=== PATIENT | female | born 1955 | race Caucasian/White ===

== ENCOUNTER 2018-05-31 12:03 | Inpatient (IN) ==
--- NOTE | 2018-05-30 22:14 | Discharge Summary ---
<Rosa Sagastume - Last Filed: 05/31/18 16:40> Orders not resulted at time of discharge: Pending orders 05/31/18 00:01 XR knee RT 1-2V [XR] Routine H/H [Hemoglobin and Hematocrit] [HEME] Routine - Discharge Diagnosis (1) Arthritis of knee, right Priority: Primary Status: Acute Comments: Total Knee replacement Precautions x 6 weeks Apply cold therapy wrap 3-6x/day for 20 minutes at a time. Encourage ambulation throughout the day and incentive spirometer 10x/hour. Elevate affected extremity above heart as tolerated. Brace: Wear knee immobilizer at night x until first post-operative appt. Opsite placed. Keep dressing intact until first follow up appointment. If > 50% saturated, notify office, remove dressing and place appropriate dressing back in place. Leave Zipline intact. Opsite dressing is water resistant, not water-pr lorrie. OK to shower, but do not get dressing wet. (2) Status post total knee replacement, right Priority: Primary Status: Acute (3) HTN (hypertension) Priority: Secondary Status: Chronic Qualifiers: Hypertension type: essential hypertension Qualified Code(s): I10 - Essential (primary) hypertension - Hospital Course Hospital course: Ms. Grijalva is a 63 year old female - Time Spent with Patient Total time spent providing and/or coordinating discharge services: - Discharge Medications Home Medications: Labetalol [Trandate] 100 mg PO BID 12/11/17 [History] Lisinopril-HCTZ 10-12.5 [Prinzide 10-12.5] 1 tab PO DAILY 12/11/17 [History] Aspirin Enteric Coated [Aspirin EC] 325 mg PO BID #20 tablet.dr 05/30/18 [Rx] OxyCODONE Immed Rel [Roxicodone 5 MG] 5 mg PO Q6HR PRN 7 Days #28 tablet 05/30/18 [Rx] Aspirin [Lo-Dose Aspirin EC] 81 mg PO DAILY 05/31/18 [History] Etodolac 400 mg PO BID 05/31/18 [History] Allergies/Adverse Reactions: Allergy/AdvReac Type Severity Reaction Status Date / Time No Known Allergies Allergy Verified 05/31/18 12:49 Primary care physician: Mahnaz Rodriguez CNP - Patient Status Disposition: Home, Self-Care - Discharge Instructions Instructions: Total Knee Replacement (DC) Follow Up With: Mahnaz Rodriguez CNP [Primary Care Provider] - Additional Instructions: Discharge Instructions: Total Knee Replacement Please call [facility] ([phone]), your Primary Care Physician, or report to the Emergency Room if you have any of the following symptoms: Nausea, vomiting, fever greater that 101.5, swelling, chest pain, shortness of breath, increased pain/redness/drainage/odor for your incision site, numbness/tingling, or any other concerning symptoms. ACTIVITY:Weight-bearing as tolerated. You may progress off support (crutches or walker) as tolerated. Incentive Spirometer 10 times an hour. MEDICATIONS: Upon discharge resume your home medications. Take all the medications as prescribed. Take a stool softener if taking narcotic pain medications. Stool softeners are only effective if you drink enough fluids. Drink 6-8 glass of water or fluids a day, unless this is not allowed for another health problem. Despite using stool softeners, if you haven't had a bowel mo vement in 3 days, please switch to a gentle laxative. Gentle laxatives are sold over the counter. You should have a bowel movement within 24 hours, if not call the office. You will be discharged from the hospital with a prescription for pain medication. You are encouraged to decrease the use of narcotic pain medication as tolerated. Should you require a refill, please call the office. [facility] prescribes narcotic pain medication for only 4-6 weeks after surgery. If you require pain medication beyond this time period, you may be referred to your Primary Care Physician or to the Pain Clinic for further evaluation. Plan ahead for refills on pain medication as many narcotics either need to be picked up at the office or mailed. It is best to call 48-72 hours in advance of needing a prescription refill so you don't run out of medication. To help control the post-operative pain, you may take NSAIDs (Aleve,Advil, Motrin, Ibuprofen, Naprosyn) or Tylenol as prescribed on the bottle in addition to the pain medication. ANTICOAGULATION (blood thinners): Continue your Aspirin, Lovenox or Coumadin as prescribed to help prevent a blood clot in the leg or in the lungs. As long as your incision remains dry and you tolerate the NSAIDs (Aleve, Advil, Motrin, ibuprofen, naprosyn), it is OK to use the NSAIDS while you are taking your anticoagulation medication. Should your incision start to drain, stop the NSAID and contact our office. Common symptoms of blood clot in the legs include: localized pain, swelling, calf tenderness, redness or discoloration of the skin. Blood clot in the lung symptoms include: shortness of breath, rapid pulse, sweating, and chest pain that worsens with deep breathing, coughing up blood, lightheadedness, feelings of anxiety. If you experience any of these symptoms notify your physician immediately, go to the emergency room, or if having trouble breathing, call 911. WOUND CARE: Leave the dressing on for 7 to 10days. You may change the dressing if it becomes saturated greater than 50%. Do not get the dressing wet at anytime. Wash your hands with antibacterial soap, rinse and dry prior to any wound care. If you have bettye the visiting nurse or rehab facility can remove the stapes 10-14 days after surgery and place steri-strips across the wound. Leave the steri-strips in place until they fall off on their won. You may let water from the shower run on top of the steri-strips. If you do not have a visit ing nurse or rehab facility, you will need to return to the office at 10-14 days for the bettye to be removed. If you have itching or redness around the dressing call the office. FOLLOW-UP: Please follow up with your surgeon in the orthopedic clinic in 4 weeks from the day of surgery. If you have bettye that need to be removed, you will need to come back to the office in 10-14 days from the day of surgery. <Lalita Lauren - Last Filed: 06/01/18 19:18> Orders not resulted at time of discharge: Pending orders 05/31/18 12:17 US anesthesia pain block [US] Routine 05/31/18 14:47 Surgical Pathology [PTH] Routine Date of Encounter: 06/01/18 Time of Encounter: 12:00 - Discharge Diagnosis (1) Arthritis of knee, right Priority: Primary Status: Acute (2) Status post total knee replacement, right Priority: Primary Status: Acute (3) HTN (hypertension) Priority: Secondary Status: Chronic Qualifiers: Hypertension type: essential hypertension Qualified Code(s): I10 - Essential (primary) hypertension - Hospital Course Hospital course: Ms. Grijalva is a 63 year old female status post right TKR robotic 05/31/18 with a history ofHTN . Patient had uneventful postoperative course other than she needed to be straight cathed but she was able to urinate on own before discharge with no other symptoms. She participated in therapy. Stable for d ischarge. Patient seen at bedside, without complaints. A&O x 3 Afebrile, vital signs stable. Labs reviewed. H/H - 12.0/35.7 stable, asymptomatic Pain control: adequate Participating in PT. All questions and concerns addressed. Educated on use of incentive spirometer. Encouraged ambulation and proper hydration. Patient educated on post-operative restrictions and post-operative care. Assessment and plan: Continue with postoperative care Discharge plan: Home with outpatient therapy, discharge today. - Time Spent with Patient Total time spent providing and/or coordinating discharge services: Date of admission: 05/31/18 16:35 Primary care physician: Mahnaz Rodriguez CNP Consults: 05/31/18 16:38 Consult to Orthopedic Navigator [CONS] [CONS] Routine Consult to Physical Therapy [CONS] Routine Comment: Evaluate, develop and impliment POC Reason for Consult: post knee surgery Does patient have active BEDREST order?: No Is patient medically & hemodynamically stable?: Yes Consult to Program Development Specialist [CONS] Routine Reason for SW Consult: post op joint replacement RT Post Op Consult [CONS] Routine Discharging clinician: Phil Khan Anticipated date of discharge: 06/01/18 Labs on day of discharge: Labs from last 24 hours 06/01/18 06/01/18 05:54 05:54 Hgb 12.0 Hct 35.7 Sodium 137 Potassium 4.3 Chloride 105 Carbon Dioxide 25 BUN 20 Creatinine 0.75 Est GFR ( Amer) > 60 Est GFR (Non-Af Amer) > 60 BUN/Creatinine Ratio 27 H Glucose 136 H Calculated Osmolality 289 Calcium 9.1 - Impressions ITS Impressions Knee X-Ray 05/31/18 00:01 IMPRESSION: Status post right total knee arthroplasty without immediate complications. D/ / Eugene Castillo MD / Eugene Castillo MD Interpreting Provider: Eugene Castillo MD - Patient Status Functional capacity at discharge: uses cane/walker Overall status at discharge: patient is back to baseline - Diet and Activity Activity: as per physical therapy Diet: advance to your usual diet
[2018-05-31] MEDS ORDERED: *HR* FentaNYL (PF) 100 MCG/2 ML VIAL ONE (12:15)
[2018-05-31] MEDS ORDERED: *HR* Propofol 200 MG/20 ML VIAL IVP ONE (12:15)
[2018-05-31] MEDS ORDERED: Famotidine 20 MG/2 ML VIAL IVP ONE (12:15)
[2018-05-31] MEDS ORDERED: *HR* Midazolam HCl 2 MG/2 ML VIAL ONE (12:15)
[2018-05-31] MEDS ORDERED: Acetaminophen IV 1,000 MG/100 ML INFUS..BTL IVPB ONE (12:16)
[2018-05-31] MEDS ORDERED: Pregabalin 75 MG CAPSULE PO ONE (12:17)
[2018-05-31] MEDS ORDERED: *HR* Promethazine 25 MG/ML VIAL IVP PRN (12:21)
[2018-05-31] MEDS ORDERED: *HR* OxyCODONE Immed Rel 5 MG TABLET PO PRN ×2 (12:21→16:38)
--- NOTE | 2018-05-31 12:22 | Anesthesia Evaluation PreOp ---
Date of Encounter: 05/31/18 Time of Encounter: 12:19 - Past History Planned Operation: Robotic R-TKR Cardiac History: HTN Pulmonary History: Denies Any Significant HX CARD BRUSHER History: Other (Hx Vertigo) Other Medical History: Denies Any Significant HX Anesthesia History: No Prior Anesthetic Complications, Past Anesthesia (BTL, L- CTR, Bone marrow donation, R-CTS, B -lithotripsy) Alcohol Use: none Drug use: none Medications and Allergies Glucosamn/Condroitn/C/Mn/[place] [[facility] Glucosamine Chondroit Cplt] 1 tab PO DAILY 12/11/17 [History] Labetalol [Trandate] 100 mg PO BID 12/11/17 [History] Lisinopril-HCTZ 10-12.5 [Prinzide 10-12.5] 1 tab PO DAILY 12/11/17 [History] Aspirin Enteric Coated [Aspirin EC] 325 mg PO BID #20 tablet. 05/30/18 [Rx] OxyCODONE Immed Rel [Roxicodone 5 MG] 5 mg PO Q6HR PRN 7 Days #28 tablet 05/30/18 [Rx] Allergy/AdvReac Type Severity Reaction Status Date / Time No Known Allergies Allergy Verified 12/11/17 09:52 - Meds/Allergy Pre-op Review Medications Reviewed: Yes Allergies Reviewed: Yes Beta Blockers on Current Med List: Yes (Labetalol) If Beta Blockers taken, Date/Time (Last Dose taken): 05/31/2018 @ 0700 Anesthesia Results - Labs Labs from Outside Facility dated 05/13/2018 essentially WNL INR = 1.1 12.5 CBC = 5.2 282 36.3 - Imaging EKG: report reviewed (66bpm - SINUS RHYTHM BORDERLINE LEFT AXIS DEVIATION Electronically Signed On 05-26-2018 9:08:19 EDT by Dante Espino) Anesthesia Exam O2 Sat Height 1.7 m Height 1.7 m Weight 83.461 kg Weight 83.461 kg O2 Sat by Pulse Oximetry 94 Vital Signs Temp Pulse Resp BP Pulse Ox 98.3 F 83 18 141/82 94 05/31/18 12:17 05/31/18 12:17 05/31/18 12:17 05/31/18 12:17 05/31/18 12:17 Height: 5'7" Weight: 184# BMI = 29 NPO (# of Hours): MNoc - HEENT Pupil (Motor): Pupils equal, EOMI Mallampati: II Teeth: Normal Oral Opening: Greater than 3 - CARD BRUSHER LOC: Oriented CARD BRUSHER Motor: Normal RUE, Normal LUE, Normal RLE, Normal LLE, Normal Face CARD BRUSHER Sensory: Normal: RUE, LUE, RLE, LLE, Face - Cardiac Rhythm: Regular Murmur: None - Pulmonary Breath Sounds: bilateral Clear Respiratory Effort: Symmetrical Anesthesia Assess/Plan ASA Score: 2 (HTN, Hypothyroidism) Modified [place] Scale for Level of Consciousness: Cooperative, oriented, and tranquil Anes Supervising Prov Stmt: Pt seen/evaluated, R&B Discussed,questions answered and consent obtained. Jad Zimmerman MD
[2018-05-31] MEDS ORDERED: Lidocaine -MPF 2% 2 ML VIAL ONE (12:29)
[2018-05-31] MEDS ORDERED: Ondansetron 4 MG/2 ML VIAL ONE (12:29)
[2018-05-31] MEDS ORDERED: CeFAZolin Syr 2,000MG/20 ML 2,000 MG/20 ML SYRINGE IVPB ONE (12:37)
[2018-05-31] MEDS ORDERED: Ringers Solution, Lactated 1,000 ML IVC SCH ×2 (12:45→16:38)
--- NOTE | 2018-05-31 12:51 | History & Physical Report ---
Date of Encounter: 05/31/18 Time of Encounter: 12:51 24 Hour HP Update - Instructions Instructions: If the History and Physical is less than 30 days old and was completed prior to A.M. admission and or procedure and has NOT been updated on calendar day of procedure please complete this update prior to performing procedure. - Update Patient reports changes in Medical Condition: No Changes in examination, assessment, or condition: No Changes in Medication: No Preop tests/diagnostics Reviewed: Yes Surgery Remains Indicated: Yes Consent for Planned Operative Procedure(s) Verified: Yes - Pre-Operative Checklist Preoperative Checklist Indicated: No Prophylactic Antibiotic Ordered: Yes Is VTE Prophylaxis Indicated?: Yes
[2018-05-31] MEDS ORDERED: ROPIVACAINE HCL/PF 0.5% 30 ML VIAL ONE (12:54)
[2018-05-31] MEDS ORDERED: Bupivacaine/Clonidine Syringe 1 EACH SYRINGE ONE (12:54)
[2018-05-31] MEDS ORDERED: Tetracaine/PF 20 MG/2 ML AMPUL ONE (12:54)
[2018-05-31] MEDS ORDERED: Bupivacaine-MPF 0.25% 10 ML VIAL ONE (13:32)
[2018-05-31] MEDS ORDERED: Ethanol\\Acetic Acid\\Na Ace\\Ben 1,000 ML IRRIG.SOLN IR ONE (13:35)
[2018-05-31] MEDS ORDERED: *HR* PHENYLEPHRINE 1,000 MCG/10 ML SYRINGE IVP ONE (14:17)
--- NOTE | 2018-05-31 14:23 | Anesthesia Procedures ---
Date of Encounter: 05/31/18 Time of Encounter: 13:17 Procedures: Anesthesia - Nerve Block Procedure Date: 05/31/18 Time: 13:17 Surgical Procedure: right total knee Checklist: Correct Patient Identifier, Correct procedure, History checked Correct side: Right Blood Thinner: No Monitor Applied: BP, Pulse Oximetry Sedation: Versed (mg): 2 Sedation: Fentanyl (mcg): 100 Indication: Post Op Analgesia Block Type: Other (adductor and Ipack) Catheter placed: No Sterile Technique: Yes Ultrasound used: Yes Anatomy identified: Yes Visual spread of Local: Yes Neuro Stimulation: No Blood on Needle Aspiration: No Smooth Injection of Local: Yes Pain with Injection of Local: No Prep: Chlorhexadine Needle: 22 x 50 mm Stimuplex Local: 0.25% Bupivicaine w/Clonidine 20 mcg/cc, Ropivacaine (0.5% 30ml with 20mg tetracaine on adductor canal, 5ml 0.25% bup plain for ant-inf., 20ml of bup/clonidine for Ipack), Other Volume (cc): 55ml Number of Attempts: 1 Complications: None/effective block Vitals: vss though out procedure, block per request of surgeon.
[2018-05-31] MEDS ORDERED: Dexamethasone 4 MG/ML VIAL ONE (14:32)
--- NOTE | 2018-05-31 14:53 | Orthopedic Operative Note ---
Date of procedure: 05/31/18 Pre-op diagnosis: Right knee arthritis Post-op diagnosis: same Procedure: Procedure: Right robotic-assisted Total knee replacement Estimated blood loss: 200 cc Hardware: Metal and polyethylene replacement. [place] Femur: 3 Tibia: 3 TS insert: 16 Patella: 36 Exam Under anesthesia: 7 degrees hyperextension 1 degree valgus as calculated by the robot full flexion and no instability Procedural Notes: Grade 4 arthritic changes all 3 compartments. Operative procedure: The patient was brought to the operating room and placed on the operating room table. After general anesthesia was administered the operative knee was examined. Findings were noted in the exam under anesthesia. The operative extremity was prepped and draped in sterile surgical fashion. The patient received IV antibiotics prior to skin incision. A standard midline incision was made centered over the patella. The incision was made through the skin and subcutaneous tissue. A medial parapatellar tendon approach was performed. Care was taken to preserve tissue along the medial aspect of the patella. And to protect the patella tendon. The deep MCL was released off the medial tibia. The infra patella fat pad was excised. The patella was everted and cut was made at the level of the insertion of the quadriceps and patella tendon. The patella was sized the guide was seated and the lug holes are drilled. Knee was brought into flexion. Patient noted to have grade 4 arthritic changes all 3 compartments. Steinmann pins were placed in the tibia and the femur for the tibial and femoral arrays respectively. Checkpoints were also placed in the tibia and the femur for calculation purposes. The knee including the femur and the tibial registered. Osteophytes, ACL and PCL were excised at this point. Extension and flexion were assessed with a valgus stress components were adjusted on the computer to balance the knee. Femoral cuts were made first with robotic assistance, these included the anterior cut posterior cuts chamfer cuts. Tibial cut was then performed with robotic assistance as well. Bone fragments were removed, as well as the medial and lateral meniscus. The size 3 femoral guide was seated box cut was made lug holes are drilled. The size 3 tibial tray was seated and prepared with the fin cutter. Trial reduction with the 16 TS Ken[place]atta revealed extension of 0 degree and 1 degree varus full flexion. No varus valgus instability. Trial reduction revealed excellent patella tracking. All trial components were removed all bony surfaces were irrigated. The Tibia was seated followed by the femur, The selected Kenyatta size was seated and secured patella. Patient had similar findings for motion and stability. The knee was closed by the PA. The knee was then irrigated out with 2 L of pulse irrigation. The extensor mechanism was closed with #2 FiberWire suture and #2 PDS suture. The subcutaneous tissue was then irrigated and closed deep with #1 PDS suture superficially with 0 PDS suture and skin was closed with zip tie The patient was then placed in a sterile dressing and a postoperative brace extubated and transferred to recovery room in stable condition. Anesthesia: GETA Surgeon: Phil Khan Was there an medical assistant dermatology present: No Estimated blood loss (cc): 200 Condition: stable Disposition: PACU
[2018-05-31] MEDS ORDERED: *HR* Morphine 10 MG/ML VIAL ONE (15:10)
[2018-05-31] MEDS: *HR* HYDROmorphone (PF) 1 MG/ML SYRINGE IVP PRN ×2 (15:43→15:48)
[2018-05-31 16:15] LABS: Hematocrit 37.9 % (35.3-44.9); Hemoglobin 12.5 g/dL (11.5-15.4)
[2018-05-31] MEDS ORDERED: Ondansetron 4 MG/2 ML VIAL IVP PRN (16:38)
[2018-05-31] MEDS ORDERED: MOM Conc 10 ML UD.LIQ PO PRN (16:38)
[2018-05-31] MEDS ORDERED: Temazepam 15 MG CAPSULE PO PRN (16:38)
[2018-05-31] MEDS ORDERED: traMADol 50 MG TABLET PO PRN (16:38)
[2018-05-31] MEDS ORDERED: Sennosides 8.6 MG TABLET PO PRN (16:38)
[2018-05-31] MEDS ORDERED: Naloxone 0.4 MG/ML INJ IVP PRN (16:38)
[2018-05-31] MEDS ORDERED: *HR* Enoxaparin 30 MG/0.3 ML SYRINGE SQ SCH (18:00)
[2018-05-31] MEDS: *HR* Enoxaparin 30 MG/0.3 ML SYRINGE SQ SCH (18:59)
[2018-05-31] MEDS: *HR* OxyCODONE/APAP 5/325 TABLET PO PRN (19:35)
[2018-06-01] MEDS: *HR* Enoxaparin 30 MG/0.3 ML SYRINGE SQ SCH (05:39)
--- NOTE | 2018-06-01 06:16 | Orthopedics Progress Note ---
Date of Encounter: 06/01/18 Time of Encounter: 06:15 Subjective Interval history: Patient was seen this morning doing well without complaints. Afebrile vital signs stable. Operative extremity: Neurovascularly intact Dressing clean dry and intact Calves nontender Assessment and plan: Continue with postoperative care Objective Vital signs: Vital Signs Temp Pulse Resp BP Pulse Ox 06/01/18 03:47 98.1 F 79 14 133/89 96 05/31/18 23:59 98.6 F 84 14 114/73 96 05/31/18 19:28 98.5 F 81 16 119/70 99 05/31/18 18:23 98.8 F 82 14 113/71 98 05/31/18 17:31 97 05/31/18 17:25 76 18 120/78 97 05/31/18 16:52 97.9 F 72 12 130/81 99 05/31/18 16:25 96.2 F L 73 12 135/84 98 05/31/18 16:14 98.2 F 69 16 129/80 99 05/31/18 16:04 98.2 F 70 15 128/74 99 05/31/18 15:54 98.2 F 66 14 130/74 98 05/31/18 15:44 68 14 132/76 96 05/31/18 15:34 70 15 126/79 97 05/31/18 15:24 97.3 F L 69 14 114/90 98 05/31/18 13:41 70 14 122/83 98 05/31/18 13:12 75 146/85 94 05/31/18 12:17 98.3 F 83 18 141/82 94 Intake and Output 05/31/18 05/31/18 06/01/18 15:59 23:59 07:59 Intake Total 100 / 100 100 / 100 Output Total 200 / 200 25 / 25 650 / 650 Balance -200 / -200 75 / 75 -550 / -550 Intake: IV Fluids 100 / 100 Ancef 2,000 MG In 0.9 % Sodium 100 / 100 Chloride 100 ML @ 200 mls/hr IVPB Q8H [facility] Rx#:[id number] Oral 0 / 0 100 / 100 Output: Urine 25 / 25 Estimated Blood Loss 200 / 200 Straight Cath 650 / 650 Other: Weight 83.461 kg 82.78 kg Patient Weight 06/01/18 23:59 Weight 82.78 kg - Labs CBC & BMP: 05/31/18 15:42 - VTE Documentation of Mechanical Device: Venous foot pump, device Consult Discharge Plan - Plan Referrals: Mahnaz Rodriguez CNP [Primary Care Provider] -
[2018-06-01 06:22] LABS: Hematocrit 35.7 % (35.3-44.9)
[2018-06-01 06:38] VITALS: BP 125/76
[2018-06-01 06:39] LABS: BUN/Creatinine Ratio 27 (6-26); Blood Urea Nitrogen 20 mg/dL (8-23); Calcium 9.1 mg/dL (8.6-10.3); Carbon Dioxide 25 mEq/L (23-29); Chloride 105 mEq/L (98-107); Glucose 136 mg/dL (70-105); Osmolality,Calculated 289 (280-300); Potassium 4.3 mEq/L (3.5-5.1); Sodium 137 mEq/L (136-145); eGFR For Non-African Americans > 60 (> 60)
[2018-06-01] MEDS: *HR* OxyCODONE/APAP 5/325 TABLET PO PRN (07:43)
[2018-06-01] MEDS ORDERED: Aspirin Enteric Coated 81 MG Tablet PO SCH (09:00)
== END 2018-06-01 16:12 | disposition home or self-care (01) | DRG 470 ==
LOC: SAMDAY 12:03 → 3NENU 16:35
PROVIDERS: ADMIT Orthopaedic Surgery; ATTEND Orthopaedic Surgery